=== PATIENT | female | born 1970 ===

== ENCOUNTER 2024-06-02 05:31 | Day surgery (SDC) | payer OTHER ==
[2024-05-27 08:34] LABS: HEMATOCRIT 43.3 % (36.0-45.00); HEMOGLOBIN 14.5 g/dL (12.0-15.00); MEAN CELL VOLUME 94.2 fL (80.00-100.00); MEAN CORPUSCULAR HEMOGLOBIN 31.7 pg (27.00-32.0); MEAN CORPUSCULAR HGB CONC 33.6 g/dl (32.0-36.0); PLATELET COUNT 385 K/uL (150-450); RED BLOOD COUNT 4.59 M/uL (4.00-6.00); RED CELL DISTRIBUTION WIDTH 13.5 % (11.5-14.5)
[2024-05-27 08:42] LABS: URINE APPEARANCE Cloudy; URINE BILIRRUBIN Negative (NEGATIVE); URINE BLOOD Moderate; URINE COLOR Yellow; URINE GLUCOSE Negative (NEGATIVE); URINE KETONE Negative (NEGATIVE); URINE LEUKOCYTE Small; URINE NITRATE Positive; URINE PROTEIN Negative (NEGATIVE); URINE UROBILINOGEN 0.2 E.U./dl
[2024-05-27 08:43] VITALS: BP 109/72
[2024-05-27 08:44] LABS: URINE EPITHELIAL CELLS 19.1 uL (0.0-38.8); URINE RBC 58.7 uL (0.0-20.8)
[2024-05-27 08:46] LABS: URINE CAST 0.76 uL (0.0-1.40)
[2024-05-27 08:49] LABS: URINE BACTERIA > 9821.5 uL (0.0-1933)
[2024-05-27 09:20] LABS: INR 1.04; PARTIAL THROMBOPLASTIN TIME 29.7 SECONDS (22.0-34.0); PROTHROMBIN TIME 11.3 SECONDS (9.0-11.5)
[2024-05-27 09:27] LABS: ALBUMIN 3.6 gm/dL (3.4-5.0); BILIRUBIN TOTAL 0.32 mg/dL (0.3-1.2); CALCIUM 9.1 mg/dL (8.5-10.1); CREATININE SERUM 0.44 mg/dL (0.55-1.02); GFR 149.58; GLOBULINA 3.8 G/DL (2.4-3.5); POTASSIUM 4.37 mEq/L (3.5-5.1); TOTAL PROTEIN 7.4 gm/dL (6.4-8.2)
[~2024-06-02] VITALS: Ht 157.5 cm; Wt 65.8 kg
[2024-06-02] MEDS ORDERED: CEFAZOLIN SODIUM 1,000 MG VIAL IV ONE (08:30)
[2024-06-02] MEDS ORDERED: SUGAMMADEX SODIUM 200 MG/2 ML VIAL IV ONE (09:45)
[2024-06-02] MEDS ORDERED: MORPHINE SULFATE 4 MG/ML VIAL IV ONE ×2 (09:55→10:25)
== END 2024-06-02 11:40 | disposition home or self-care (01) ==
LOC: CIR.AMB 05:31
PROVIDERS: ATTEND Surgery
DX: K81.1 Chronic cholecystitis (principal); Z88.5 Allergy status to narcotic agent; I10 Essential (primary) hypertension; J44.9 Chronic obstructive pulmonary disease, unspecified